=== PATIENT | female | born 1970 | race Caucasian/White ===

== ENCOUNTER 2018-02-23 18:12 | Emergency (ER) | payer OTHER ==
[~2018-02-23] VITALS: Ht 172.7 cm; Wt 70.2 kg
[2018-02-23 18:28] VITALS: BP 128/83
--- NOTE | 2018-02-23 18:55 | NUR ---
NA X1 FOR ROOMING
--- NOTE | 2018-02-23 19:02 | NUR ---
FROM LOBBY TO ROOM AT THIS TIME
--- NOTE | 2018-02-23 19:25 | NUR ---
PA TO SEE PT, PT BECAME VERY ANGRY AND ARGUMENTATIVE, DEMANDING MRI. PA ATTEMPTED TO EXPLAIN TO PT THAT MRI IS NOT AN EMERGENCY AND SHOULD BE HANDLED OUT PT, HAPPY TO WRITE A REFERAL. PT STORMED OUT OF ROOM.
== END 2018-02-23 19:27 | disposition left against medical advice (07) ==
LOC: ED 19:21
DX: S16.1XXA Strain of muscle, fascia and tendon at neck level, initial encounter (principal); X58.XXXA Exposure to other specified factors, initial encounter; Y93.89 Activity, other specified; Y92.89 Other specified places as the place of occurrence of the external cause; Y99.8 Other external cause status
CPT/HCPCS: 99281

== ENCOUNTER 2018-12-29 10:41 | Emergency (ER) | payer BC ==
[~2018-12-29] VITALS: Ht 172.7 cm; Wt 75.5 kg
[2018-12-29 10:44] VITALS: BP 120/76
[2018-12-29] MEDS ORDERED: L.E.T SOLUTION TP ONE ×2 (10:57→11:00)
[2018-12-29] MEDS ORDERED: DIPH,PERTUSS(ACELL),TET VAC/PF 0.5 ML IM-VACC ONE ×2 (11:00→11:06)
[2018-12-29] MEDS ORDERED: LIDOCAINE-MPF 1%, 5ML INFIL ONE (11:00)
[2018-12-29] MEDS ORDERED: LIDOCAINE-MPF 1%, 5ML ONE (11:06)
[2018-12-29] MEDS ORDERED: NEOSPORIN OINT. PKT 1 PACKET ONE (11:48)
--- NOTE | 2018-12-29 12:17 | NUR ---
Patient given discharge instructions and they have confirmed that they understand the instructions. Patient ambulatory with steady gait.
== END 2018-12-29 12:18 | disposition home or self-care (01) ==
LOC: ED 12:10
DX: S61.212A Laceration without foreign body of right middle finger without damage to nail, initial encounter (principal); W23.0XXA Caught, crushed, jammed, or pinched between moving objects, initial encounter; Y93.89 Activity, other specified; Y92.009 Unspecified place in unspecified non-institutional (private) residence as the place of occurrence of the external cause; Y99.8 Other external cause status
CPT/HCPCS: 12001; 90471; 90715; 99283

== ENCOUNTER 2018-12-31 20:22 | Emergency (ER) | payer BC ==
[~2018-12-31] VITALS: Ht 172.7 cm; Wt 76.7 kg
[2018-12-31 20:24] VITALS: BP 134/75
[2018-12-31] MEDS ORDERED: CEPH-368 PO (20:31)
--- NOTE | 2018-12-31 20:41 | NUR ---
PT PRESENTED WITH C/O PAIN AND SWELLING TO LEFT 3RD AND 4TH FINGERS, WAS SEEN HERE 12/29 AFTER HAVING INJURY TO FINGERS, BOTH FX AND LACERATION. IS TAKING KEFLEX. PT RESTING ON GURNEY, MONITORS APPLIED, SIDERAILS UP X2, CALL LIGHT WITHIN REACH. AWAITING ERP FOR EVAL AND ORDERS
--- NOTE | 2018-12-31 20:44 | NUR ---
PA AT BEDSIDE FOR EVAL
--- NOTE | 2018-12-31 21:09 | NUR ---
WOUND CLEANED AND GAUZE DRSG APPLIED TO FINGERS
== END 2018-12-31 21:18 | disposition home or self-care (01) ==
LOC: ED 21:12
DX: S60.142A Contusion of left ring finger with damage to nail, initial encounter (principal); S60.132A Contusion of left middle finger with damage to nail, initial encounter; F17.200 Nicotine dependence, unspecified, uncomplicated; W23.0XXA Caught, crushed, jammed, or pinched between moving objects, initial encounter; Y93.89 Activity, other specified; Y92.098 Other place in other non-institutional residence as the place of occurrence of the external cause; Y99.8 Other external cause status
CPT/HCPCS: 11740

== ENCOUNTER 2019-01-05 12:26 | Emergency (ER) | payer BC ==
[~2019-01-05] VITALS: Ht 172.7 cm; Wt 74.4 kg
[~2019-01-05 12:26] MED LIST: CEPH-368 PO
[2019-01-05 12:52] VITALS: BP 110/68
--- NOTE | 2019-01-05 13:14 | NUR ---
FIRST CONTACT WITH PT. PT HERE FOR SUTURE REMOVAL ON LEFT MIDDLE FINGER- WERE PLACED LAST WEDNESDAY. PT'S AOX4. RESPS EVEN AND UNLABORED.
--- NOTE | 2019-01-05 13:31 | NUR ---
Patient given discharge instructions and they have confirmed that they understand the instructions. Patient ambulatory with steady gait.
== END 2019-01-05 13:46 | disposition home or self-care (01) ==
LOC: ED 13:35
DX: S61.213D Laceration without foreign body of left middle finger without damage to nail, subsequent encounter (principal); X58.XXXD Exposure to other specified factors, subsequent encounter
CPT/HCPCS: 99281

== ENCOUNTER 2020-09-14 12:00 | Emergency (ER) | payer SELFPAY ==
[2020-09-14 12:13] VITALS: BP 126/92
[2020-09-14 13:10] LABS: BASOPHILS % (AUTO) 1 % (0-1); EOSINOPHILS % (AUTO) 2 % (1-7); LYMPHOCYTES % (AUTO) 29 % (22-44); MEAN CORPUSCULAR HEMOGLOBIN 32.9 pg (27.0-34.8); MEAN CORPUSCULAR HGB CONC 34.6 g/dL (32.4-35.8); MEAN PLATELET VOLUME 8.1 fL (7.4-10.4); MONOCYTES % (AUTO) 10 % (2-9); NEUTROPHILS % (AUTO) 58 % (42-75); PLATELET COUNT 240 x10^3/uL (130-400); RED BLOOD COUNT 4.63 x10^6/uL (3.82-5.3); RED CELL DISTRIBUTION WIDTH 14.9 % (9.6-15.2)
[2020-09-14 13:15] LABS: ALANINE AMINOTRANSFERASE 74 U/L (12-78); ALBUMIN 3.9 g/dL (3.4-5.0); ANION GAP 8 mmol/L (5-15); CHLORIDE 109 mmol/L (98-107); CREATININE 0.76 mg/dL (0.55-1.02)
[2020-09-14 13:17] LABS: ALKALINE PHOSPHATASE 88 U/L (45-117); BILIRUBIN,TOTAL 0.6 mg/dL (0.2-1.0); TOTAL PROTEIN 7.8 g/dL (6.4-8.2)
--- NOTE | 2020-09-14 13:40 | NUR ---
PT GIVEN DISCHARGE INSTRUCTIONS AND INSTRUCTIONS TO WAIT FOR ROCKER SHOE FROM [facility]. PT RESTING IN [place] AT THIS TIME.
--- NOTE | 2020-09-14 14:01 | NUR ---
R[facility]ER SHOE TUBED FROM [facility]. PT LEFT WITHOUT GETTING SHOE, STATING SHE PROBABLY WOULDN'T WEAR IT ANYWAY.
== END 2020-09-14 14:04 | disposition home or self-care (01) ==
LOC: ED 13:51
DX: S92.512A Displaced fracture of proximal phalanx of left lesser toe(s), initial encounter for closed fracture (principal); S20.219A Contusion of unspecified front wall of thorax, initial encounter; F10.220 Alcohol dependence with intoxication, uncomplicated; Y90.0 Blood alcohol level of less than 20 mg/100 ml; Y04.8XXA Assault by other bodily force, initial encounter; Y93.89 Activity, other specified; Y92.009 Unspecified place in unspecified non-institutional (private) residence as the place of occurrence of the external cause; Y99.8 Other external cause status
CPT/HCPCS: 36415; 71045; 80053; 80320; 85025; 99284; G0480